=== PATIENT | male | born 2000 | race Caucasian/White ===

== ENCOUNTER 2018-08-22 10:08 | Inpatient (IN) | payer OTHER ==
[2018-08-22 11:14] LABS: PLATELET COUNT 302 10^3/uL (150-400)
--- NOTE | 2018-08-22 11:37 | EDPHY ---
General - History Smoking Status: Never smoked Time Seen by Provider: 08/22/18 11:28 Narrative: CHIEF COMPLAINT: I am having a rational thought HISTORY OF PRESENT ILLNESS: Patient presents with complaints of I and having irrational thoughts. He states that the symptoms have been present since this morning. This started suddenly. They have been constant. He denies suicidal ideation. He does report feeling homicidal, currently toward me. He also states that he has had ""irrational thoughts," which are delusional thoughts. He has had a history of psychotic break in the past. He reports previous psychiatric care but not this time. Does not nose diagnoses. No other associated complaints or modifying factors PSYCHIATRIC DIAGNOSES: Psychotic break PRIOR PSYCHIATRIC EVALUATIONS: [place] earlier this year M1/DETAINER: Dr. Marie, at 11:37 a.m. REVIEW OF SYSTEMS: Ten systems reviewed and are negative unless otherwise noted in the HPI EXAMINATION General Appearance: Alert, no distress. Conversing in full sentences. Head: normocephalic, atraumatic Eyes: Pupils equal and round, no conjunctival pallor or injection ENT, Mouth: Mucous membranes moist Neck: Normal inspection, supple, non-tender Respiratory: Lungs are clear to auscultation Cardiovascular: Regular rate and rhythm Gastrointestinal: Abdomen is soft and nontender Back: non-tender, no bony abnormalities Neurological: GCS 15. A&O, nonfocal, normal gait. Strength is symmetric in all 4 limbs Skin: Warm and dry, no rash Extremities: Nontender, no pedal edema Psychiatric: Flat affect. Describes homicidal thoughts towards me and others. Denies SI. DIFFERENTIAL DIAGNOSES: Including but not limited to acute psychosis, schizophrenia, schizoaffective disorder, bipolar, may MDM: 11:25 a.m. Suspected acute psychosis with rational thought homicidal. Patient denies suicidal ideation. There is no altered mentation. Vital signs are within normal limits. Laboratory studies urinalysis are pending for medical clearance at this time. He has been placed on an M1 at this time. 11:45 a.m. Patient has been cleared for evaluation at this time. 2:00 p.m. Patient has been evaluated and pending recommendation. 2:30 p.m. Patient has been accepted for inpatient care at [address] [place] [address]. Accepting physician is Dr. Jordan. He will be transferred by EMS. SUPERVISION: Patient was independently examined, but I discussed the case with my secondary supervising physician Dr. Marie ([facility]) Medical Decision Makin:50 p.m. the patient has been evaluated and will be admitted to [address] [place] [address] Cee. (Jaspal Marie) - Objective Vital Signs: Initial Vital Signs Temperature (C) 36.5 C 08/22/18 10:11 Heart Rate 90 08/22/18 10:11 Respiratory Rate 16 08/22/18 10:11 Blood Pressure 162/100 H 08/22/18 10:11 O2 Sat (%) 98 08/22/18 10:11 O2 Delivery Mode Room Air Allergies/Adverse Reactions: ENVIRONMENTAL Allergy (Uncoded 08/22/18 11:01) PISTACHIO Allergy (Uncoded 08/22/18 11:01) SUNFLOWER SEEDS Allergy (Uncoded 08/22/18 11:01) Home Medications: Medication Instructions Recorded Acetaminophen [Tylenol 325mg (*)] 650 mg PO Q4HRS PRN tab 08/28/18 Risperidone 2 mg PO DAILY 30 Days #30 tablet 08/28/18 clonazePAM [klonoPIN (*)] 1 mg PO HS 30 Days #30 tab 08/28/18 Laboratory Results: Laboratory Results 08/22/18 10:50 08/22/18 10:50 Medications Given: Discontinued Medications Acetaminophen (Tylenol) 650 mg PO Q4HRS PRN PRN Reason: Pain, Mild Stop: 02/18/19 17:25 Last Admin: 08/27/18 18:58 Dose: 650 mg Clonazepam (Klonopin) 1 mg PO HS ISABELLE Stop: 02/20/19 20:59 Last Admin: 08/27/18 19:01 Dose: 1 mg Clonazepam (Klonopin) 0.5 mg PO DAILY ISABELLE Stop: 02/20/19 08:59 Last Admin: 08/26/18 08:47 Dose: 0.5 mg Clonazepam (Klonopin) 0.5 mg PO DAILY14 ISABELLE Stop: 02/21/19 13:59 Last Admin: 08/26/18 15:42 Dose: Not Given Hydroxyzine HCl (Hydroxyzine Hcl) 25 mg PO Q6HRS PRN PRN Reason: Anxiety Stop: 02/22/19 14:49 Last Admin: 08/27/18 20:47 Dose: 25 mg Lorazepam (Ativan) 0.5 - 1 mg PO Q6HRS PRN PRN Reason: Anxiety, Able to Take PO Stop: 02/18/19 17:25 Last Admin: 08/23/18 14:04 Dose: 1 mg Lorazepam (Ativan) 1 mg PO HS ISABELLE Stop: 02/19/19 20:59 Last Admin: 08/23/18 19:07 Dose: 1 mg Lorazepam (Ativan) 1 mg PO Q4HRS PRN PRN Reason: Agitation, Psychosis Stop: 02/18/19 17:25 Last Admin: 08/24/18 17:29 Dose: 1 mg Risperidone (Risperdal-M) 2 mg SL HS ISABELLE Stop: 02/18/19 20:59 Last Admin: 08/27/18 19:01 Dose: 2 mg Risperidone (Risperdal-M) 1 mg SL Q4 PRN PRN Reason: Agitation, Psychosis Stop: 02/18/19 17:59 Last Admin: 08/23/18 14:04 Dose: 1 mg Risperidone (Risperdal-M) 1 mg SL DAILY ISABELLE Stop: 02/20/19 08:59 Last Admin: 08/26/18 08:47 Dose: 1 mg Risperidone (Risperdal-M) 0.25 mg SL Q4H PRN PRN Reason: Agitation, Psychosis Stop: 02/18/19 17:32 Last Admin: 08/28/18 05:04 Dose: 0.25 mg Departure - Departure Disposition: [facility] IP Clinical Impression: Acute psychosis Schizophrenia Qualifiers: Schizophrenia type: unspecified Qualified Code(s): F20.9 - Schizophrenia, unspecified Condition: Good
--- NOTE | 2018-08-22 14:51 | ASMTTCLDSP ---
TLC Discharge Disposition Disposition: Answers: Admit Disposition Notes: Notes: Admit 3N. Discharge Concerns/Recommendations: Notes: In consultation with [facility] ED physician, Jaspal Marie MD and on-call psychiatrist, Jace Cee MD, both concurred that pt appears to meet 27-65 criteria requiring psychiatric hospitalization as pt appears to be gravely disabled due to a mental illness condition. Pt was given but unable to sign the 3N prohibited belongings list while in the ED. Was patient given the Answers: Yes Inpatient Behavioral Health Prohibited Belongings List while in the ED? For inpatient Jace Cee MD admission, the following psychiatrist agreed to accept patient for admission to Behavioral Health ([facility]): Type of Hold: Answers: Involuntary Transportation Hold Hold initiated by: Answers: ED Physician Date Signed: 08/22/2018 02:51 PM Electronically Signed By:Alin Peck
--- NOTE | 2018-08-22 14:51 | ASMTTLCEVL ---
TLC Evaluation - Basic Information Evaluation Start Date and 08/22/2018 12:30 PM Time Hospital Status Answers: M1 Hold 72-hr M1 Hold Start Date 08/22/2018 11:37 AM and Time Patient statement Notes: you guys are triggering my anxiety. Narrative Notes: Pt is a 18 yo, single, unemployed, male with history of previous psychotic break, brought to [facility] ED initially by his parents, Georgie and Uday [phone] due to increasing concerns about pts anxiety, lack of sleep and having worsening psychotic break-like symptoms for the past 4 days. Pt was placed on M1 hold by ED provider which noted: patient admits to homicidal thoughts, irrational thoughts that consist of delusions of grandeur. He appears to be in acute psychosis. Pt was unable to complete BDI/BSS questionnaires and did not appear to be a reliable historian due to current mental state/anxiety. History was obtained from parents who reported that pt started pulling away from his peers while in high school and focused on digital artwork. On June 11, 2018 while family and pt were in [place], parents reported that pt had a psychotic break which was precipitated by lack of sleep and social pressures. Parents reported that they took pt to an emergency room and was evaluated but released. Parents currently reported sudden onset of irrational, constant thoughts, especially this morning. Parents reported that pt has thoughts that he is an imoji, that he is overwhelmed by his anxiety. Parents reported no previous history of self-harm, cutting behaviors or suicide attempts. Parents reported that when family was in [place], pt had some minor symptoms. Pt had a difficult time in college last year and has social phobias and difficulties with social/peer interactions. Diagnosis History Notes: Unspecified Schizophrenia Spectrum and Other Psychotic Disorder. Parents reported that provider had diagnosed pt with Adjustment Disorder. Prior suicide attempts Notes: No prior history of suicide attempts. Prior hospitalizations Notes: No prior history of psychiatric hospitalizations. Treatment Responses Notes: N/A. History of violence Notes: No reported past history of aggression/violence. Therapist: Pt also began working with two therapists in June Vidal Gilliland, PhD in [place] and DBT therapist named Lakeshia Carter. Psychiatrist: Pt began working with psychiatrist, Nohemy Langston MD since June 2018. Medications (name, dosage, route, freq uency) Notes: Pt is prescribed Risperdal 0.25 mg, take .5 mg in am, .5 mg in mid-day, and .5 mg po at bedtime. Allergies/Reaction Notes: Environmental allergies only. Sleep Notes: Little to no sleep over past 3-4 days. Appetite Notes: Decreased appetite. Medical/Surgical history Notes: Significant for being born 10 weeks early along with fraternal twin brother. Pt born with Cerebral Palsy. Pt had tendon lengthening surgeries to left leg at age 3 and age 8, then growth restraint surgery on right leg at age 13. Pt had history of childhood asthma. Substance use history (frequency, intensity, his tory, duration) Notes: Pt has no history of alcohol, marijuana or any other illicit substance use. BAL zero. UDS results negative for all tested substances. Family composition Notes: Parents are . Pt has a fraternal twin brother named Jamel and a 16 yo sister. Need for family Answers: Yes participation in patient's care Family psychiatric/substance abuse history Notes: Mother reported she has history of depression; maternal side of family with history of depression and anxiety; paternal grandmother is recovering alcoholic since 1983; maternal grandmother committed suicide by carbon monoxide poisoning/asphyxiation. Developmental history Notes: Pt born 10 weeks early at [facility] and grew up in [place]. He was diagnosed with Cerebral Palsy a week after he was born. Pt had to be admitted to [facility] shortly after his . Parents denied pt having any childhood history of TBIs, LOC or concussions. Parents denied any childhood history of physical, emotional or sexual abuse/trauma. Abuse concerns Answers: None Marital status/children Notes: Pt is single, never , no dependents, not in dating relationship. Living situation Notes: Pt resides with his parents and 16 yo sister in a house in [place]. Sexual history/orientation Notes: Not active. Heterosexual. Peer support/family strengths Notes: Parents, brother identified as pts primary supports. Education level/history Notes: Pt attended one year of college at [employer] in [place] last year. Pt is currently auditing some classes at on Tuesdays and . Work history Notes: Pt is not employed. 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 Notes: None. Legal Notes: Pt has no arrest/legal history. Sikh/Spiritual Notes: None identified which would impact treatment. Leisure Notes: Pt enjoys working out, hiking, biking, playing ping pong, playing golf with his father, skiing in the winter, watching sports. Collateral Notes: Parents, Georgie and Uday as noted above. Patient's strengths Answers: Athletic (Please select at least TWO strengths): Intelligent Supportive Family Willingness TLC Evaluation - Mental Status Exam Appearance: Answers: Appropriate Clean Unkempt Disheveled Eye Contact: Answers: Intermittent Staring Mood: Answers: Sad Affect: Answers: Anxious Apprehensive Blunted Constricted Fearful Flat Guarded Nervous Sad Subdued Tearful Behavior: Answers: Crying Fearful Guarded Passive Speech: Answers: Irrelevant Illogical Coherent Circumstantial Delayed Grandiose Loose Associations Slowed Thought Process: Answers: Disorganized Disoriented Circumstantial Loose Associations Insight: Answers: Poor Judgement: Answers: Poor Depression Answers: Difficulty Concentrating Signs/Symptoms: Flat Affect Psychomotor Retardation Sad Mood Withdrawn Anxiety Signs/Symptoms Answers: Generalized Anxiety Hallucinations: Answers: None Delusions: Answers: Grandiose Ideas of Reference Current Stage of Change Answers: Precontemplation Pt reported to have Answers: No suicidal/self-injuring ideation/behavior? Pt reported to be making Answers: No suicidal/self-injuring threats? Pt reported to have Answers: No aggression/assault ideation/behavior? Pt reported to be making Answers: No aggression/assault threats? Pt exhibits inability to Answers: Yes care for self/grave disability? Ideation/behavior is Answers: Yes chronic? Patient has a specific Answers: No plan? Pt has access to means to Answers: No execute the plan? Ideation involves Answers: No serious/lethal intent? Ideation has Answers: Yes delusional/hallucinatory content? History of Answers: No suicidal/self-injuring ideation, behavior, or threats? History of Answers: No aggressive/assaultive ideation, behavior, or threats? History of serious Answers: No physical harm to self/others while in treatment setting? TLC Evaluation - Suicide/Homicide Risk Suicide Risk Factors: Answers: Flat Affect Hx of Suicide Attempt by Family Member Inadequate Social Support Lack of Sikh Support Lack of Social Support Lack/Loss of Employment Psychotic Disorder Schizophrenia Single Homicide/violence risk Answers: None factors: Current Suicidal Answers: No Ideation? Current Suicidal Ideation Answers: No in the Past 48 Hours? Current Suicidal Ideation Answers: No in the Past Month? Current Suicidal Answers: No Ideation, Worst Ever? Suicide Internal Answers: Other Notes: No past/recent/current Protective Factors: suicidal ideation Suicide External Answers: Positive Therapeutic Protective Factors: Relationships Ranking of patient's Answers: Low suicidal risk: Ranking of patient's Answers: Low homicidal risk: TLC Evaluation - Wrap-up AXIS I Diagnosis (include DSM-V and ICD-10 codes), must also be entered in [employer], which is the source of truth. Notes: Unspecified Schizophrenia Spectrum and Other Psychotic Disorder 298.9 (F29) In consultation with [facility] ED physician, Jaspal Marie MD and on-call psychiatrist, Jace Cee MD, both concurred that pt appears to meet 27-65 criteria requiring psychiatric hospitalization as pt appears to be gravely disabled due to a mental illness condition. Pt was given but unable to sign the 3N prohibited belongings list while in the ED. Evaluation End Date and 08/22/2018 02:30 PM Time (HH:MM): Date Signed: 08/22/2018 02:50 PM Electronically Signed By:Alin Peck
--- NOTE | 2018-08-22 15:46 | PDCONSULT ---
<Eugenie Hsu - Last Filed: 08/22/18 15:40> Quick Technician Note: The patient was brought in to the ED by his parents. He reports having "rage" against me and others. He isn't sure why but does. He denies SOB, chest pains , dizziness, N/V. He refused to answer majority of my questions and refused to be examined. He appeared to have a flat affect, flushed face and occupied with his thoughts. Respirations 22, not labored. <Laney Goldstein - Last Filed: 08/22/18 21:25> Quick Technician Note: I saw and evaluated patient with Eugenie Hsu NP please see my dictated H&P
[2018-08-22] MEDS ORDERED: MAGNESIUM HYDROXIDE 30 ML UDCUP PO PRN (17:26)
[2018-08-22] MEDS ORDERED: MAG HYDROX/AL HYDROX/SIMETH 30 ML UDCUP PO PRN (17:26)
[2018-08-22] MEDS ORDERED: NICOTINE POLACRILEX 2 MG GUM B PRN (17:26)
[2018-08-22] MEDS: LORazepam 0.5 MG TAB PO PRN (18:37)
[2018-08-22] MEDS: RISPERIDONE 1 MG ODT TAB SL PRN (18:39)
[2018-08-22] MEDS: RISPERIDONE 2 MG ODT TAB SL SCH (21:15)
[2018-08-23] MEDS: RISPERIDONE 1 MG ODT TAB SL PRN ×2 (04:21→14:04)
[2018-08-23] MEDS: LORazepam 0.5 MG TAB PO PRN ×3 (04:21→21:20)
[2018-08-23] MEDS: ACETAMINOPHEN 325 MG TAB PO PRN ×2 (06:15→14:04)
--- NOTE | 2018-08-23 06:59 | GCON ---
DATE OF CONSULTATION: 08/22/2018 REFERRING PHYSICIAN: Александр Palafox MD CHIEF COMPLAINT: Psychosis. HISTORY OF PRESENT ILLNESS: A 18-year-old male with a history of a previous psychotic break, cerebra l palsy, presenting to the ER with irrational thoughts starting this morning. He denies suicidal elisabet ation. He states he felt like he was "a gun" and could shoot something. Says he was seeing unusual commercials talking to him. Reports increased stressors after spending some time at college in [place] last year and is still marlon ling with the aftermath of that time. He would not go into further detail. REVIEW OF SYSTEMS: I completed a 10-point review of systems, negative except as noted in HPI. PAST MEDICAL HISTORY: Right spastic hemiplegic cerebral palsy, history of a psychotic break. PAST SURGICAL HISTORY: Tendon lengthening. SOCIAL HISTORY: Lives in [place] with his parents and was previously a student at college in [place] . Denies alcohol, tobacco, or illicits. FAMILY HISTORY: Noncontributory. HOME MEDICATIONS: Risperdal. ALLERGIES: Pistachios, sunflower seeds. PHYSICAL EXAMINATION: VITAL SIGNS: Temperature 36.9. Blood pressure 162/100, repeat was 179/60. G ENERAL: He is lying in bed, in no acute distress. HEENT: PERRLA. Moist mucous membranes. CV: Re gular rate and rhythm. LUNGS: Clear. ABDOMEN: Soft, nontender, nondistended. Positive bowel soun ds. : No Xavier. MUSCULOSKELETAL: 5/5 upper and lower extremity strength. NEURO: 2 through 12 intact. PSYCH: Alert and oriented, flat affect, staring off, would take a very long time to answer questions. LABS: WBC 10, hemoglobin 18, hematocrit 52. Sodium 142, potassium 4.2, chloride 104, carbon dioxide 26, BUN 15, creatinine 0.9, glucose 101, calcium is 10, cholesterol normal. Urine tox negative. As pirin and salicylate are negative. Alcohol negative. ASSESSMENT AND PLAN: 1. Psychosis: Previously with a psychotic break and treated with Risperdal. Per patient, says he h as discontinued this. He denies suicidal ideations, but did endorse some homicidal thoughts. He was to be transferred to Behavioral Health for further management. 2. History of cerebral palsy: He has had previous tendon lengthening and was undergoing PT and OT. 3. Hypertension: Secondary to agitation at time of admission. This has since resolved. 4. Diet: Regular. 5. Deep venous thrombosis prophylaxis: Low risk, ambulatory. Thank you for this consult. If you have any questions, please call. /[id number]/MODL
--- NOTE | 2018-08-23 09:13 | ASMTBHMTP ---
Master Treatment Plan Master Treatment Plan Answers: Impaired Reality for: Date: 08/22/2018 Diagnosis on Admission: Unspecified Schizophrenia Spectrum and Other Psychotic Disorder 298.9 (F29) Expected length of stay: 3-5 days Reason for admission: Notes: Pt is a 18 yo, single, unemployed, male with history of previous psychotic break, brought to [facility] ED initially by his parents, Georgie and Uday [phone] due to increasing concerns about pts anxiety, lack of sleep and having worsening psychotic break-like symptoms for the past 4 days. Pt was placed on M1 hold by ED provider which noted: patient admits to homicidal thoughts, irrational thoughts that consist of delusions of grandeur. He appears to be in acute psychosis. Pt was unable to complete BDI/BSS questionnaires and did not appear to be a reliable historian due to current mental state/anxiety. History was obtained from parents who reported that pt started pulling away from his peers while in high school and focused on digital artwork. On June 11, 2018 while family and pt were in [place], parents reported that pt had a psychotic break which was precipitated by lack of sleep and social pressures. Parents reported that they took pt to an emergency room and was evaluated but released. Parents currently reported sudden onset of irrational, constant thoughts, especially this morning. Parents reported that pt has thoughts that he is an imoji, that he is overwhelmed by his anxiety. Parents reported no previous history of self-harm, cutting behaviors or suicide attempts. Parents reported that when family was in [place], pt had some minor symptoms. Pt had a difficult time in college last year and has social phobias and difficulties with social/peer interactions. Patient's stated presenting problems: Notes: "because I am sick...." Patient's goals for treatment: Notes: "to get better..." Patient's strengths: Notes: "some?" Identify supports outside of hospital: Notes: family in [place], [place] Discharge criteria: Notes: Psychotic symptoms will be reduced or eliminated with return to baseline functioning in affect, thinking and behavior prior to discharge. Initial disposition plan/considerations: Notes: Homeless/[place]* Master Treatment Plan Required Signatures Psychiatrist signature: Answers: Psychiatrist: RN on-shift signature: Answers: RN: Patient signature: Answers: Patient: Date Signed: 08/23/2018 08:41 AM Electronically Signed By:Gilberto Davis
[2018-08-23] MEDS ORDERED: LORazepam 0.5 MG TAB PO PRN (14:24)
--- NOTE | 2018-08-23 14:51 | BAPA ---
DATE OF SERVICE: 08/23/2018 CHIEF COMPLAINT: "I do not want to meet with you, "f---you." The patient refuses to meet with this COP EXAMINER for initial psychiatric evaluation. HISTORY OF PRESENT ILLNESS: From the ED note dated 08/22/2018, the patient presented to the emergency department having irrational thoughts. The patient reports symptoms have been present since this morning and started suddenly, and they have been constant. Patient denies suicidal ideation. The patient reported he did feel homicidal currently toward the physician in the ER. The patient again reports he has had "irrational thoughts" which are delusional thoughts. The patient has a history of a psychotic break in the past. From the [facility] evaluation dated 08/22/2018, the patient was placed on an M1 hold with M1 hold start date of 08/22/2018, at 11:37 a.m. The patient reported to the [facility] spool worker "you guys are triggering my anxiety." The patient is a 18-year- old, single, unemployed, male with a history of previous psychotic break, brought to the [facility] ED initially by his parents. The parents have increased concern about patient's anxiety, lack of sleep, having worsening psychotic break-like symptoms for the past 4 days. The patient was placed on an M1 hold by the ED provider due to patient admitting to having homicidal thoughts, irrational thoughts that are consistent with delusions of grandeur. The patient appears to be in acute psychosis. Most of the [facility] evaluation questions are answered by patient's parents. The patient's parents reported on June 11, 2018 while visiting [facility] in [place], the patient had a psychotic break, which was precipitated by lack of sleep and social pressures. The parents report they took the patient to the emergency room and he was evaluated, but released. Parents report patient currently has had sudden onset of irrational, constant thoughts, especially this morning prior to presenting to the ER. The patient's parents report the patient has had thoughts that he is an emoji and that he is overwhelmed by his anxiety. The patient had a difficult time in college last year, has social phobias and difficulties with social peer interactions. The further history of present illness will be gathered throughout the patient's stay, when patient is more agreeable to meeting for interview. PAST PSYCHIATRIC HISTORY: From the [facility] evaluation, the patient has a past diagnosis history of unspecified schizophrenia spectrum or other psychiatric disorder. The patient's parents reported that a provider had diagnosed the patient with adjustment disorder. The patient has no prior history of suicide attempts. No prior history of psychiatric hospitalizations. There are no reports of past history of aggression or violence. The patient has had little to no sleep over the past 3-4 days, decreased appetite. ALLERGIES: Aiken seeds, pistachio and environmental allergies per record. CURRENT MEDICATIONS: Risperidone at 2 mg sublingual at bedtime, risperidone 1 mg sublingual q.4 p.r.n., Ativan 1 mg p.o. at bedtime, Ativan 0.5-1 mg p.o. q.6 hours p.r.n. 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 The patient was born with cerebral palsy. The patient had tendon lengthened surgeries to leg at age 3 and age 8, then growth restraint surgery on right leg at age 13. The patient had history of childhood asthma. SOCIAL HISTORY: From the [facility] evaluation, the patient's parents are . The patient has a fraternal twin brother named Jamel, and a 16-year-old sister. The patient was born 10 weeks early at the [facility] and grew up in [place]. The patient has a diagnosis of cerebral palsy after 1 week after . [facility] his . Parents denied patient having any childhood history of TBI, loss of consciousness, or concussions. Parents denied any childhood history of physical, emotional, or sexual abuse or trauma. The patient is single, never . No dependants. Not in a dating relationship. The patient resides with his parents and 16-year-old sister in a house in [place]. The patient describes sexual orientation as heterosexual. Currently not sexually active. Parents and patient's brother are identified as patient's primary supports. The patient attended 1 year of college at [email or web address] in [place] last year. The patient is currently auditing some classes at on Tuesdays and . The patient is not employed. 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 Patient has no history of duty. The patient has no history of arrests or legal history. There are no christian or spiritual identifiers or indications that would impact the patient's treatment. The patient enjoys working out, hiking, biking, playing ping-pong, playing golf with his father, skiing in the winter, and watching sports. SUBSTANCE USE HISTORY: From the [facility] evaluation, the patient has no history of alcohol, marijuana, or any other illicit substance use. Blood alcohol on admission was 0. UDS results were negative for all tested substances. FAMILY PSYCHIATRIC HISTORY: From the [facility] evaluation, the patient's mother reported she has a history of depression. Maternal side of family history of depression with anxiety. Maternal grandmother is a recovering alcoholic since 1983. Maternal grandmother committed suicide by carbon monoxide poisoning and asphyxiation. ADMISSION LABS AND STUDIES: CBC from 08/22/2018, within normal limits except white blood cells were elevated at 10.13, hemoglobin was elevated at 18.1, hematocrit was elevated at 52.6, absolute neutrophils were elevated at 7.13. BMP from 08/22/2018, within normal limits except glucose was elevated at 101. Hemoglobin A1c was 5.5. Liver function from 08/22/2018 within normal limits except total protein was elevated at 8.6, and albumin was elevated at 5.1. Fasting lipid panel from 08/22/2018, within normal limits except LDL cholesterol calculated was elevated at 106. Toxicology screen from 08/22/2018 was negative for all substances of abuse and negative for ethyl alcohol. MENTAL STATUS EXAM: The patient is a well-nourished male looking stated chronological age. Attire is appropriate. Dress is hospital garb. Grooming status is appropriate. Ambulation is independent. Gait is fairly normal. The patient does walk with a limp due to cerebral palsy. The patient's posture is normal and relaxed. Eye contact is inappropriate and avoided. Motor activity is appropriate with purposeful, organized, coordinated movements. The patient does walk with a limp due to history of cerebral palsy. There are no involuntary movements noted. The patient's attitude is uncooperative, defensive and irritable. The patient appears disinterested and does not relate well to this interviewer. Language production is un spontaneous, rate is hesitant. Latency of response is prolonged with irritable tone, low volume, and amount is monosyllabic. Articulation is clear. Unable to appropriately assess patient's mood at this time, as patient does not respond to question regarding his mood. Patient's thought process is nonlinear and illogical with loose associations, thought blocking, and disorganized thought process. The patient does not report suicidal/homicidal thoughts, ideas, or plans. The patient denies auditory visual hallucinations, patient denies delusions. The patient does not appear to be attending to internal stimuli. The patient is oriented to person. The patient's attention and concentration are poor. The patient's insight and judgment are poor. Unable to appropriately assess cognitive function at this time. The patient does not report undesirable side effects from current medications. DIAGNOSIS: Based on the patient's history and current presentation, his diagnosis is unspecified schizophrenia or other psychotic disorder. FORMULATION: The patient is a 18-year-old male, single, unemployed, living in [place], who presents to the hospital involuntarily due to being a danger to others and gravely disabled. The patient requires continued inpatient care because of current psychosis. The patient presents with problems of psychosis that have been steadily increasing over the past several days. Patient's life has been affected by these problems, including the crisis that led to this hospitalization. The onset and exacerbation of symptoms at this time are unknown. The patient has a past psychiatric history of unspecified psychosis. The patient is at a high safety risk due to current psychosis. Protective factors while hospitalized include ongoing safety checks, active involvement in treatment, and support from our treatment team. The patient could benefit from inpatient hospitalization for safety, crisis stabilization and medication evaluation. PLAN: (1) Psychotropic medications: After reviewing options, risks and benefits, the patient's current medications will be continued. This COP EXAMINER met with patient's parents today when parents visited patient during visiting hours. Parents report that the patient has responded well to Risperdal and Ativan in the past, and report that once the patient is able to get some rest, he improves quickly. Parents report patient has responded well to Ativan in the past for sleep. No other medication changes at this time as more time is needed to determine ongoing tolerability and efficacy. Plan is to continue to observe patient for response and side effects from medications, and ongoing monitoring and evaluation. (2) Review with patient informed consent and recommendations for psychotropic medication treatment listed below (3) Labs: no additional labs at this time (4) Therapy: continue milieu and group therapy (5) Further investigation including gathering information from patients relatives and review of past case records to inform treatment plan. (6) Safety/Wellness plan and follow-up outpatient appointments to be established prior to discharge. Next steps are for patient to meet with home care assistant to plan a safe discharge plan and establish outpatient services for ongoing treatment. (7) Confer with inpatient treatment team regarding treatment plan. (8) Legal status: M1 hold (9) Consider discharge next week if patient is in stable condition, safe, and has a safe discharge plan. (10) Substance abuse interventions: none at this time ESTIMATED LENGTH OF STAY: 7-10 days PSYCHOTROPIC MEDICATION TREATMENT INFORMED CONSENT and RECOMMENDATIONS: Review nature of condition, diagnosis, and prognosis. Review nature and purpose of psychotropic medication treatment. Review type of psychotropic medications being ordered. Review risk and benefits of psychotropic medication treatment. Review probable length of time will need to take medications. Review risk and benefits of not undergoing psychotropic medication treatment. Review alternative treatments to psychotropic medications. Review psychotropic medications contraindications, drug-drug interactions, side effects, and importance of reporting any side effects to a psychiatric provider or nurse during inpatient hospitalization, and upon discharge to patients psychiatric outpatient provider, primary care provider, or other health rehab care assistant. Review importance of asking a nurse, psychiatric provider, or primary care provider any questions or problems concerning the psychotropic medications. Verifty patient understands the information that has been provided, and understands, accepts, and agrees to psychotropic medications. Review patients safety plan and importance of patient to communicate to staff while hospitalized if patient is ever a danger to self/others, or unable to care for self, and upon discharge, the importance for patient to contact [facility] or [facility], or go to the nearest emergency room, if patient is ever a danger to self/others, or unable to care for self. Recommend that upon discharge patient establish medication management treatment with a psychiatric provider, establishes routine therapy appointments, and follow-up with primary care provider. Verify patient understands and agrees to these recommendations. /[id number]/MODL MTDD
[2018-08-23] MEDS: RISPERIDONE 2 MG ODT TAB SL SCH (19:07)
[2018-08-23] MEDS ORDERED: LORazepam 1 MG TAB PO SCH (21:00)
--- NOTE | 2018-08-23 22:46 | PDMN ---
Medical Necessity Medical necessity: Pt meets inpt criteria per MD order and [facility],Other Psychotic Disorders, Adult: Inpatient Care. Pt presented to ER, appearing to be in acute psychosis, on M1 Hold due to being danger to others and gravely disabled, admitted w/diagnosis of unspecified schizophrenia or other psychotic disorder requiring inpt psychiatric hospitalization for current psychosis.
[2018-08-24] MEDS: clonazePAM 0.5 MG TAB PO SCH (09:03)
[2018-08-24] MEDS: RISPERIDONE 1 MG ODT TAB SL SCH (09:03)
--- NOTE | 2018-08-24 12:12 | ASMTCMCOM ---
CM Note CM Note Notes: The patient participated in the clinical treatment team rounds. He reported that he was "overworked" which induced his SI and caused him to have a "psychotic break;" he reported also realizing that his family causes him additional anxiety. The patient stated, "I hope to get back on my feet. I'm not doing so well...For the past three years... I'm in a bad space...All of my life I've been dealing with depression and consequently anxiety." The patient was tearful as he spoke; he occasionally paused to exhale. The patient suggested he may benefit from antidepressants. The patient's family has attempted to provide the patient with clothing and sensory objects for self soothing from home and the patient has declined to receive his belongings. The patient continues to wear a hospital gown w/o scrub pants and requires redirection from staff to put additional clothing on. The patient reported that he does not wear the scrub pants due to repeated incontinence; he stated that he "just gets super nervous and has to sit down on the toilet." The clinical team recommended he drink only a reasonable amount of water and attempt to relieve himself quarter after every hour. Date Signed: 08/24/2018 12:09 PM Electronically Signed By:Vicenta Rees
--- NOTE | 2018-08-24 12:50 | SOAPPROG ---
SOAP Progress Note Assessment/Plan: Assessment: Unspecified psychosis, current acute psychosis. Slight improvement noted, notable sleep. (see subjective/objective note). Patient is not safe to discharge at this time as patient continues to exhibit signs of psychosis, and express psychotic symptoms. Patient requires continued inpatient care because of current psychosis, and requires inpatient level of care to stabilize in order to no longer be gravely disabled due to mental illness. Patient could benefit from continued inpatient hospitalization for crisis stabilization, safety, and medication evaluation. Plan: (1) Psychotropic medications: After reviewing options, risks, and benefits patient agrees to continue current medications, discontinue Ativan 1 mg po QHS, begin trial of Klonopin 0.5 mg po QD and 1 mg po QHS, and increase Risperidal to 1 mg po QD and 2 mg po QHS. No other medication changes at this time as more time is needed to determine ongoing tolerability and efficacy. Plan is to continue to observe patient for response and side effects from medications, and ongoing monitoring and evaluation. (2) Review with patient informed consent and recommendations for psychotropic medication treatment listed below (3) Labs: no additional labs at this time (4) Therapy: continue milieu and group therapy (5) Further investigation including gathering information from patients relatives and review of past case records to inform treatment plan. (6) Safety/Wellness plan and follow-up outpatient appointments to be established prior to discharge. Next steps are for patient to meet with manager primary care to plan a safe discharge plan and establish outpatient services for ongoing treatment. (7) Confer with inpatient treatment team regarding treatment plan. (8) Legal status: M1 hold, to sign in voluntary when M1 hold expires (9) Consider discharge next week if patient is in stable condition, safe, and has a safe discharge plan. PSYCHOTROPIC MEDICATION TREATMENT INFORMED CONSENT and RECOMMENDATIONS: Review nature of condition, diagnosis, and prognosis. Review nature and purpose of psychotropic medication treatment. Review type of psychotropic medications being ordered. Review risk and benefits of psychotropic medication treatment. Review probable length of time patient will need to take medications. Review risk and benefits of not undergoing psychotropic medication treatment. Review alternative treatments to psychotropic medications. Review psychotropic medications contraindications, drug-drug interactions, side effects, and importance of reporting any side effects to a psychiatric provider or nurse during inpatient hospitalization, and upon discharge to patients psychiatric outpatient provider, primary care provider, or other health health care sanitary technician. Review importance of asking a nurse, psychiatric provider, or primary care provider any questions or problems concerning the psychotropic medications. Verify patient understands the information that has been provided, and understands, accepts, and agrees to psychotropic medications. Review patients safety plan and importance of patient to report to staff while hospitalized if patient is ever a danger to self/others, or unable to care for self, and upon discharge, the importance for patient to contact [facility] or [facility], or go to the nearest emergency room, if patient is ever a danger to self/others, or unable to care for self. Recommend that upon discharge patient establish medication management treatment with a psychiatric provider, establishes routine therapy appointments, and follow-up with primary care provider. Verify patient understands and agrees to these recommendations. 08/24/18 12:51 Subjective: Following up with patient for evaluation of psychosis and safety. Patient reports, "I am doing better, feel less anxious, and got some good sleep." Patient expresses the following psychiatric symptoms anxiety. Patient reports taking medications as prescribed, and describes response to medications as good. Patient does not report undesirable side effects from the medications, and agrees to continue current medications. Patient reports appetite as good, and reports eating all meals. Patient describes getting 10 hours of sleep, and feeling rested. Objective: Vital Signs Temp Pulse Resp BP Pulse Ox 36.5 C 105 H 14 151/61 H 96 08/24/18 06:00 08/24/18 06:00 08/24/18 06:00 08/24/18 06:00 08/24/18 06:00 NURSING REPORT: Consulted with nursing for update on patients progress in treatment. Nurses report patient is not engaged in treatment, is not attending groups, slept 10 hours, expresses the following psychiatric symptoms: severe anxiety, exhibits the following psychiatric symptoms: withdrawn, thought blocking, disorganized; refuses to wear more than a hospital gown; refuses to wear underwear or hospital pants; is eating all meals with direction from staff ; requires direction from staff to preform ADLs, is agreeable to medications and taking as prescribed with no report of side effects, with no s/s of EPS/ akathisia, and denies SI/HI, denies A/V hallucinations, and denies delusions. RN CLINICAL REVIEW UPDATE: currently working to set-up OP appointments for therapy and medication management. TREATMENT TEAM MEETING: Patient met with treatment team to review treatment plan for 10 minutes. MSE: The patient is a well-nourished male looking stated chronological age. Attire is appropriate and dress is casual and is neat. Grooming status is appropriate and neat. Ambulation is independent. Gait is normal and coordinated. Posture is normal and relaxed. Eye contact is appropriate, and adequate. Motor activity is appropriate with purposeful, organized, coordinated movements; with no involuntary movements. Attitude is cooperative and friendly. Patient appears distractible and does not relate well to this interviewer. Language production is unspontaneous. Rate is hesitant. Latency of response is prolonged, sad tone, and low volume, and amount is monosyllabic. Articulation is clear. Patient reports mood as okay with incongruent and flat , incongruent affect. Patients thought process is disorganized, non-linear, illogical, with loose associations, thought blocking. Associations are loose. Patient does not report suicidal/homicidal thoughts, ideas, or plans. Patient denies auditory, visual hallucinations. Patient denies delusions. Patient does not appear to be attending to internal stimuli. Patients attention and concentration are poor. Patient is oriented to person, place. Patients insight is poor. Patients judgment is poor. No evidence of gross cognitive dysfunction at any point during the interview. No evidence of apparent dysfunction in recent or remote memory. - Time Spent With Patient Time Spent With Patient: 25 minutes, met with patient individually and with treatment team. - Pending Discharge Pending Discharge Within 24 Hours: No Pending Discharge Within 48 Hours: No ICD10 Worksheet Patient Problems: Problems Problem Status Onset Acute psychosis Acute Schizophrenia Acute Unspecified psychosis Acute
[2018-08-24] MEDS: LORazepam 0.5 MG TAB PO PRN (17:29)
[2018-08-24] MEDS: clonazePAM 1 MG TAB PO SCH (19:15)
[2018-08-24] MEDS: RISPERIDONE 2 MG ODT TAB SL SCH (19:15)
--- NOTE | 2018-08-25 07:20 | SOAPPROG ---
SOAP Progress Note Assessment/Plan: Assessment: Unspecified psychosis, current acute psychosis. Slight improvement noted, notably sleep and patient is more interactive with staff (see subjective/ objective note). Patient is not safe to discharge at this time as patient continues to exhibit signs of psychosis, and express psychotic symptoms. Patient requires continued inpatient care because of current psychosis, and requires inpatient level of care to stabilize in order to no longer be gravely disabled due to mental illness. Patient could benefit from continued inpatient hospitalization for crisis stabilization, safety, and medication evaluation. Plan: (1) Psychotropic medications: After reviewing options, risks, and benefits patient agrees to continue current medications. No medication changes at this time as more time is needed to determine ongoing tolerability and efficacy. Plan is to continue to observe patient for response and side effects from medications, and ongoing monitoring and evaluation. (2) Review with patient informed consent and recommendations for psychotropic medication treatment listed below (3) Labs: no additional labs at this time (4) Therapy: continue milieu and group therapy (5) Further investigation including gathering information from patients relatives and review of past case records to inform treatment plan. (6) Safety/Wellness plan and follow-up outpatient appointments to be established prior to discharge. Next steps are for patient to meet with clinical care manager to plan a safe discharge plan and establish outpatient services for ongoing treatment. (7) Confer with inpatient treatment team regarding treatment plan. (8) Legal status: M1 hold, to sign in voluntary when M1 hold expires (9) Consider discharge next week if patient is in stable condition, safe, and has a safe discharge plan. PSYCHOTROPIC MEDICATION TREATMENT INFORMED CONSENT and RECOMMENDATIONS: Review nature of condition, diagnosis, and prognosis. Review nature and purpose of psychotropic medication treatment. Review type of psychotropic medications being ordered. Review risk and benefits of psychotropic medication treatment. Review probable length of time patient will need to take medications. Review risk and benefits of not undergoing psychotropic medication treatment. Review alternative treatments to psychotropic medications. Review psychotropic medications contraindications, drug-drug interactions, side effects, and importance of reporting any side effects to a psychiatric provider or nurse during inpatient hospitalization, and upon discharge to patients psychiatric outpatient provider, primary care provider, or other health associate director career services. Review importance of asking a nurse, psychiatric provider, or primary care provider any questions or problems concerning the psychotropic medications. Verify patient understands the information that has been provided, and understands, accepts, and agrees to psychotropic medications. Review patients safety plan and importance of patient to report to staff while hospitalized if patient is ever a danger to self/others, or unable to care for self, and upon discharge, the importance for patient to contact [facility] or [facility], or go to the nearest emergency room, if patient is ever a danger to self/others, or unable to care for self. Recommend that upon discharge patient establish medication management treatment with a psychiatric provider, establishes routine therapy appointments, and follow-up with primary care provider. Verify patient understands and agrees to these recommendations. 08/25/18 07:18 Subjective: Following up with patient for evaluation of psychosis and safety. Patient reports, "I slept well last night, feel better, not as nervous around other people now." When this FISHING VESSEL DECKHAND asks patient reason he is hospitalized, patient does not respond. Patient expresses the following psychiatric symptoms severe anxiety. Patient reports taking medications as prescribed, and describes response to medications as good. Patient does not report undesirable side effects from the medications, and agrees to continue current medications. Patient reports appetite as good, and reports eating all meals. Patient describes getting "a lot" of hours of sleep, and feeling rested. Objective: Vital Signs Temp Pulse Resp BP Pulse Ox 36.5 C 87 16 123/64 H 96 08/25/18 06:00 08/25/18 06:00 08/25/18 06:00 08/25/18 06:00 08/25/18 06:00 NURSING REPORT: Consulted with nursing for update on patients progress in treatment. Nurses report patient is not engaged in treatment, is not attending groups, slept 11 hours, expresses the following psychiatric symptoms: severe anxiety, exhibits the following psychiatric symptoms: withdrawn, thought blocking, disorganized; refuses to wear more than a hospital gown; refuses to wear underwear or hospital pants; is eating all meals with direction from staff ; requires direction from staff to preform ADLs, is agreeable to medications and taking as prescribed with no report of side effects, with no s/s of EPS/ akathisia, and denies SI/HI, denies A/V hallucinations, and denies delusions. Nurses report patient is not able to perform his ADLs independently and requires continued redirection from staff. Staff reports patient stated "f--- you" a few times to staff yesterday when requiring redirection. Patient entered nursing station yesterday afternoon and was redirectable with assistance from staff and security. Patient continues exhibit disorganized behavior and thought process. COMMODITY LOAN CLERK UPDATE: currently working to set-up OP appointments for therapy and medication management. TREATMENT TEAM: patient was agreeable to meeting with treatment team yesterday and appeared fairly attentive and relaxed during meeting. MSE: The patient is a well-nourished male looking stated chronological age. Attire is appropriate and dress is casual and is neat. Grooming status is appropriate and neat. Ambulation is independent. Gait is normal and coordinated. Posture is normal and relaxed. Eye contact is appropriate, and adequate. Motor activity is appropriate with purposeful, organized, coordinated movements; with no involuntary movements. Attitude is fairly cooperative. Patient appears distractible and does not relate well to this interviewer. Language production is unspontaneous. Rate is hesitant. Latency of response is prolonged, sad tone, and low volume, and amount is monosyllabic. Articulation is clear. Patient reports mood as okay with incongruent and flat , incongruent affect. Patients thought process is disorganized, non-linear, illogical, with loose associations, thought blocking. Patient does not report suicidal/homicidal thoughts, ideas, or plans. Patient denies auditory, visual hallucinations. Patient denies delusions. Patient does not appear to be attending to internal stimuli. Patients attention and concentration are poor. Patient is oriented to person, place. Patients insight is poor. Patients judgment is poor. No evidence of gross cognitive dysfunction at any point during the interview. No evidence of apparent dysfunction in recent or remote memory. - Time Spent With Patient Time Spent With Patient: 15 minutes, met with patient individually. - Pending Discharge Pending Discharge Within 24 Hours: No Pending Discharge Within 48 Hours: No ICD10 Worksheet Patient Problems: Problems Problem Status Onset Acute psychosis Acute Schizophrenia Acute Unspecified psychosis Acute
[2018-08-25] MEDS: RISPERIDONE 1 MG ODT TAB SL SCH (08:21)
[2018-08-25] MEDS: clonazePAM 0.5 MG TAB PO SCH ×2 (08:21→14:14)
--- NOTE | 2018-08-25 14:13 | ASMTCMCOM ---
CM Note CM Note Notes: The patient reported that he had a supportive visit with his mother today; they discussed discharge and determined that the patient is improving and will likely be ready soon. The patient agreed that he could benefit from remaining in the hospital for the next few days and plans to check in with the provider at the beginning of next week. The patient reported that he is "freaked out" by being here because he is experiencing the onset of symptoms he hadn't experienced prior to hospitalization such as incontinence. The patient was incontinent overnight and continues to be prompted by staff to eliminate quarter after every hour. The patient seems to be improving as evidenced by his clothing; the patient is no longer dressed in a gown only, he is observed wearing pants and shirts. Although, the patient reported he is wearing diapers in addition. Date Signed: 08/25/2018 02:11 PM Electronically Signed By:Vicenta Rees
[2018-08-25] MEDS: clonazePAM 1 MG TAB PO SCH (20:16)
[2018-08-25] MEDS: RISPERIDONE 2 MG ODT TAB SL SCH (20:17)
[2018-08-26] MEDS: clonazePAM 0.5 MG TAB PO SCH ×2 (08:47→15:42)
[2018-08-26] MEDS: RISPERIDONE 1 MG ODT TAB SL SCH (08:47)
[2018-08-26] MEDS ORDERED: hydrOXYzine HCL 25 MG TAB PO PRN (14:50)
[2018-08-26] MEDS ORDERED: LORazepam 0.5 MG TAB PO PRN (14:50)
[2018-08-26] MEDS ORDERED: RISPERIDONE 1 MG ODT TAB SL PRN (14:51)
--- NOTE | 2018-08-26 15:06 | SOAPPROG ---
SOAP Progress Note Assessment/Plan: Assessment: Per Oz Villela's recent note: Assessment: Unspecified psychosis, current acute psychosis. Slight improvement noted, notably sleep and patient is more interactive with staff (see subjective/ objective note). Patient is not safe to discharge at this time as patient continues to exhibit signs of psychosis, and express psychotic symptoms. Patient requires continued inpatient care because of current psychosis, and requires inpatient level of care to stabilize in order to no longer be gravely disabled due to mental illness. Patient could benefit from continued inpatient hospitalization for crisis stabilization, safety, and medication evaluation. Plan: 08/26/18 14:59 1. Patient was sedated and slurring words when MD attempted to rouse him from sleep and speak with him this afternoon. Will change sedating meds and use lower doses of SGA in order to target thought disorder and anxiety with lowest effective dose of meds possible while encouraging use of alternative, non- pharmacologic interventions such as coping skills, group therapy, milieu activities, and positive peer interactions to help manage his mood dysregulation. 2. Decrease Klonopin. Use Ativan 0.5mg Q6H PRN for anxiety. Encourage alternative interventions to help manage anxiety more effectively with lower risk of SE's. 3. Add Hydroxyzine 25mg Q6H PRN for anxiety. 4. Decrease TDD of Risperdal to 2mg QHS. May use Risperdal 0.25mg Q4H PRN for agitation or psychosis. 5. Much of this patient's difficulty with reality testing and thought organization is directly related to cognitive impairment d/t CP, and not a schizophreniform disorder. As such, social and behavioral interventions are likely to be more effective over long-term with lower risks of adverse side effects than use of high doses or combinations of SGA's and benzos. MD strongly encourages family to consider consulting a behavioral health therapist to work with family on implementing these type of interventions at home to minimize the risk of harmful behaviors at home and reduce need for higher levels of care. Subjective: Patient was asleep in bed when MD tried to meet with him. Patient was difficult to rouse and presented sedated, sluggish, slurring his words. MD advised patient he would reduce the benzos and Risperdal he has been receiving since both can cause sedation along with numerous other risks including psychomotor retardation, impaired cognition (which only exacerbates patient's limited intellectual functioning), abnormal involuntary muscle movements, cardiac arrhythmias, dependence, withdrawal, weight gain, dyslipidemia, etc. It seems more worthwhile to help patient learn to use non-pharmacologic tools to cope with anxiety, frustration, and mood dysregulation. Much of the patient's anxiety appears to be caused by his intellectual disability. He has a hard time understanding social cues and processing social/emotional information. Patient responds well to 1:1 direction and guidance from staff. He is currently performing ADL's with limited assistance, including dressing appropriately, brushing teeth, eating meals with peers and attending group therapy. Objective: Vital Signs Temp Pulse Resp BP Pulse Ox 36.5 C 85 14 128/76 H 95 08/25/18 06:00 08/26/18 06:00 08/26/18 06:00 08/26/18 06:00 08/26/18 06:00 MSE: Affect: Labile Mood: "OK" TP: More organized, coherent TC: No SI/HI Insight/Judgment: Impaired - Time Spent With Patient Time Spent With Patient: 15" - Pending Discharge Pending Discharge Within 24 Hours: No Pending Discharge Within 48 Hours: No ICD10 Worksheet Patient Problems: Problems Problem Status Onset Acute psychosis Acute Schizophrenia Acute Unspecified psychosis Acute
[2018-08-26] MEDS: clonazePAM 1 MG TAB PO SCH (19:58)
[2018-08-26] MEDS: RISPERIDONE 2 MG ODT TAB SL SCH (19:59)
--- NOTE | 2018-08-27 09:55 | ASMTBHDC ---
Notes Note: Notes: The patient is prepared to discharge on Tuesday, August 28, pending further assessment from his provider. The patient reported having had a successful visit with his father on the unit yesterday, Tuesday, August 26. He planned to invite both of his parents to return for a visit this afternoon. The patient reported no issues with incontinence overnight. He expressed interest in beginning outpatient group therapy because he has found the inpatient groups to be very supportive to his treatment including that they have helped him to feel more comfortable expressing himself. The patient requested to call him therapist, Vidal Gilliland. Date Signed: 08/27/2018 09:54 AM Electronically Signed By:Vicenta Rees
[2018-08-27] MEDS: ACETAMINOPHEN 325 MG TAB PO PRN ×2 (11:14→18:58)
--- NOTE | 2018-08-27 13:44 | ASMTBHFAM ---
Notes Note: Notes: This keno writer / runner met with the parents of this patient and discussed community resources for out patient group therapy, as well as, the discharge plan. This keno writer / runner explained that discharge pends on further evaluation from the provider, otherwise his appointment for individual therapy has been rescheduled for late afternoon. The patient's earliest appointment on August 28 is 13:00 for DBT skills with [facility]. Date Signed: 08/27/2018 01:44 PM Electronically Signed By:Vicenta Rees
--- NOTE | 2018-08-27 13:49 | SOAPPROG ---
SOAP Progress Note Assessment/Plan: Assessment: Per Oz Villela's recent note: Assessment: Unspecified psychosis, current acute psychosis. Slight improvement noted, notably sleep and patient is more interactive with staff (see subjective/ objective note). Patient is not safe to discharge at this time as patient continues to exhibit signs of psychosis, and express psychotic symptoms. Patient requires continued inpatient care because of current psychosis, and requires inpatient level of care to stabilize in order to no longer be gravely disabled due to mental illness. Patient could benefit from continued inpatient hospitalization for crisis stabilization, safety, and medication evaluation. Plan: 08/26/18 14:59 1. Patient was sedated and slurring words when MD attempted to rouse him from sleep and speak with him this afternoon. Will change sedating meds and use lower doses of SGA in order to target thought disorder and anxiety with lowest effective dose of meds possible while encouraging use of alternative, non- pharmacologic interventions such as coping skills, group therapy, milieu activities, and positive peer interactions to help manage his mood dysregulation. 2. Decrease Klonopin. Use Ativan 0.5mg Q6H PRN for anxiety. Encourage alternative interventions to help manage anxiety more effectively with lower risk of SE's. 3. Add Hydroxyzine 25mg Q6H PRN for anxiety. 4. Decrease TDD of Risperdal to 2mg QHS. May use Risperdal 0.25mg Q4H PRN for agitation or psychosis. 5. Much of this patient's difficulty with reality testing and thought organization is directly related to cognitive impairment d/t CP, and not a schizophreniform disorder. As such, social and behavioral interventions are likely to be more effective over long-term with lower risks of adverse side effects than use of high doses or combinations of SGA's and benzos. MD strongly encourages family to consider consulting a business control specialist to work with family on implementing these type of interventions at home to minimize the risk of harmful behaviors at home and reduce need for higher levels of care. PLAN: 08/27/18 13:21 1. Patient more alert, oriented and able to engage in conversation. He complete safety plan and identified some coping strategies he can use to help manage his anxiety and stress more effectively. 2. Patient reported less anxiety today. Was able to attend groups and participate appropriately. 3. MD encouraged POC to consider day tx programs that would provide patient with social activities and therapeutic support. Parents said they were looking into some groups b/c patient "seemed to enjoy groups" so much on unit. They plan to talk to patient's OP therapist about groups and look into day tx program or PHP at [facility]. 4. POC stated has f/u appts with psych MD and therapist on Tuesday afternoon. They would like patient to d/c on Tuesday AM. Subjective: Patient sitting in his room at desk eating salad his parents brought him. MD spoke with POC and patient at length about his safety plan, his aftercare treatment, his OP providers, community resources for social support and day tx programs. MD also discussed patient's medications. POC said patient looks the "best" they've seen him. He is calm, pleasant, cooperative, alert, oriented, interacting appropriately. He is not sedated or sluggish, more energetic today. He has attended all groups on unit today and wants to do a day tx program as outpatient. POC are looking into several options. MD advised about r/b/se's of benzos and antipsychotic meds. MD advised against using benzos PRN throughout day every time patient has an anxiety episode d/t concerns about tolerance, dependence and rebound anxiety. POC said they try to use klonopin at home sparingly. Patient agreed he would prefer to use his coping skills when anxious , such as riding his bike, taking a walk, going to the park, reading a book, listening to music and hanging out with friends. POC agreed with this plan. Objective: Vital Signs Temp Pulse Resp BP Pulse Ox 36.8 C 83 14 141/62 H 96 08/27/18 06:00 08/27/18 06:00 08/27/18 06:00 08/27/18 06:00 08/27/18 06:00 MSE: Affect: Euthymic Mood: "Good" TP: Linear, goal-directed TC: Denies any SI/HI, no paranoia Perception: No AH/VH Insight/Judgment: Improved - Time Spent With Patient Time Spent With Patient: 25" - Pending Discharge Pending Discharge Within 24 Hours: Yes Pending Discharge Date: 08/28/18 (Possible d/c on Tuesday once f/u appts confirmed) Pending Discharge Time: 11:00 ICD10 Worksheet Patient Problems: Problems Problem Status Onset Acute psychosis Acute Schizophrenia Acute Unspecified psychosis Acute
[2018-08-27] MEDS: RISPERIDONE 2 MG ODT TAB SL SCH (19:01)
[2018-08-27] MEDS: clonazePAM 1 MG TAB PO SCH (19:01)
[2018-08-28 06:43] VITALS: BP 133/72
--- NOTE | 2018-08-28 08:49 | BDS ---
REASON FOR ADMISSION: From the ED note dated 08/22/2018, patient presented with complaints of irrational thoughts. The patient denied suicidal ideation. Patient reported feeling homicidal toward the interviewer. Patient reported his irrational thoughts were also delusional thoughts. The patient was admitted involuntarily on an M1 hold due to being a danger to others as evidenced by having homicidal thoughts to the interviewer and also for grave disability due to an underlying mental illness. The patient was admitted for safety crisis stabilization and medication evaluation. ADMITTING DIAGNOSES: Acute psychosis, cerebral palsy with cognitive impairment , generalized anxiety disorder, unspecified psychosis. ADMISSION PHYSICAL EXAM: The patient was seen for an Internal Medicine consultation on 08/22/2018, for medical clearance for inpatient psychiatric hospitalization and treatment. The patient was medically cleared for inpatient psychiatric hospitalization and treatment. For further details, please refer to consultation note dated 08/22/2018. ADMISSION LABS: CBC from 08/22/2018, within normal limits except white blood cells were elevated at 10.13, hemoglobin was elevated at 18.1, hematocrit was elevated at 52.6, absolute neutrophils were elevated at 7.13. BMP from 2017 was within normal limits except glucose was elevated at 101. Hemoglobin A1c from 08/22/2018, was 5.5, within normal limits. Liver function tests from 08/22/2018, within normal limits except total protein was elevated at 8.6, albumin was elevated at 5.1. Lipid panel from 08/22/2018, within normal limits except LDL cholesterol calculated was elevated at 106. Toxicology screen from 08/22/2018, was negative for substances screen tested and was negative for ethyl alcohol. MAJOR PROCEDURES OR TESTS: None. HOSPITAL COURSE: The most prominent symptoms and behaviors while the patient was here were severe anxiety, disorganized behavior and thought process. Target symptoms were severe anxiety and psychosis. Treatment modalities utilized were milieu and group therapy. Risperidone 2 mg p.o. at bedtime was started to target psychosis symptoms, was tolerated with no report of side effects and with good response. Ativan 1 mg p.o. at bedtime was started to target severe anxiety symptoms, was tolerated with no report of side effects and with fair response. Ativan was discontinued and Klonopin 1 mg p.o. at bedtime was started to target severe anxiety symptoms, was tolerated with no report of side effects and with good response. Risperdal 1 mg p.o. daily was started to target psychosis and severe agitation. This medication was discontinued by the attending psychiatrist over the weekend due to concern of over-sedation. Klonopin 0.5 mg 0900 and 0.5 mg, 1400 was started to target severe agitation. This medication was discontinued by the attending psychiatrist over the weekend due to concern of over-sedation. The patient has improved considerably with no signs of psychiatric symptoms and no psychiatric symptoms expressed at time of discharge. The patient reports he has improved since admission. States to be in stable condition. Feels safe to discharge and he contracts for safety. Patient's response to treatment was good. The patient's parents report that the patient is at baseline and has improved since his admission. There were no adverse or unexpected results of treatment. The patient was safe throughout his stay, active in treatment, engaged in groups, and was appropriate with staff and other patients. The patient met with the treatment team prior to discharge to assess readiness to discharge and reviewed discharge plan. The treatment team consensus is the patient is in stable condition, has a safe discharge plan and is ready to discharge today. CONDITION AT DISCHARGE: Patient is in stable condition and is no longer a danger to self or others, and is not gravely disabled due to mental illness. Patient is no longer in need of inpatient level of care, and can be safely and effectively treated within the community. The patients level of risk at time of discharge is low. MSE: The patient is casually dressed and with good hygiene , and looks stated age. Patient is sitting, posture is upright, and position is relaxed. Patient appears awake, alert, and responds appropriately and reasonably during interview. Patient is engaged, relates well to interviewer, and emotional facial expression is appropriate to situation and changes appropriately with topic. Patient is cooperative, makes comfortable eye contact , and movements are voluntary, deliberate, coordinated, and smooth and even with no inappropriate movements. Patient makes laryngeal sounds effortlessly and shares conversation appropriately; pace of conversation is appropriate, and stream of talking is fluent; articulation is clear and understandable; word choice is effortless and appropriate for education level; completes sentences, occasionally pausing to think; rate and volume are appropriate for interview and setting. Patient reports mood as euthymic. Patients affect is stable with full variable range, congruent with mood, and appropriate to speech and circumstances. Patient has linear and logical thinking, with no loose associations, tangential thought, thought blocking, concrete thinking, or any other signs of formal thought disorder. Patient denies suicidal and homicidal ideation, and denies hallucinations and delusions. Patient appears to be a reliable historian with sound judgement and good insight into current condition. Patient has no apparent dysfunction in recent or remote memory noted , and no evidence of gross cognitive dysfunction noted at any point during the interview. DISCHARGE DIAGNOSES: Cerebral palsy with cognitive impairment, generalized anxiety disorder, unspecified psychosis. CURRENT MEDICATIONS: After reviewing options, risks, and benefits with the patient and the patient's parents, the patient agrees to continue Risperdal 2 mg p.o. at bedtime. and Klonopin 1 mg p.o. at bedtime. The patient request prescriptions for these medications at time of discharge and prescriptions for 30 days are provided. The prescriptions are reviewed with the patient at time of discharge to ensure accuracy and patient understanding. These prescriptions are also reviewed with the patient's mother and father at time of discharge. DISPOSITION: The patient left hospital independently and voluntarily with his mother and father after the family meeting with this IT QUALITY ASSURANCE ANALYST and plans to return home with his mother and father. FOLLOWUP: student services coordinator reports the appropriate outpatient follow-up services have been established and outpatient appointments have been scheduled. The patient received written instructions with times and dates of outpatient follow-up appointments. The following follow-up recommendations were provided to the patient at discharge: Continue psychotropic medications as prescribed and attend appointments as scheduled. Report any side effects to a psychiatric outpatient provider, a primary care provider, or other health animal care worker. Address any questions or problems concerning the psychotropic medications with a psychiatric outpatient provider, a primary care provider, or other health animal care worker. Contact [facility] or [facility], or go to the nearest emergency room, if you are ever a danger to yourself/others, or unable to care for yourself. As soon as possible, establish a routine medication management treatment with a psychiatric provider, establish routine therapy appointments, and follow-up with a primary care provider. LEGAL COURSE: The patient was admitted on an M1 hold for involuntary inpatient psychiatric hospitalization. The patient discharged today independently and voluntarily. The patient did become voluntary during his stay. ATTITUDE AT TIME OF DISCHARGE: The patients attitude was positive at time of discharge, and patient reports looking forward to discharging today. The patient reports he feels safe to discharge, is no longer a danger to himself or others, is in stable condition, and contracts for safety. Patient states he will continue medications as prescribed, and establish medication management treatment with an outpatient provider after discharge. Patient reports he understands the information that has been provided to him, and he understands, accepts, and agrees to psychotropic medications. Patient describes internal protective factors as the coping skills he has learned while hospitalized here, and he plans to continue to practice these coping skills after discharge. FAMILY MEETING: This IT QUALITY ASSURANCE ANALYST met with patient and patient's parents at time of discharge at patient's request to review discharge plan and assess readiness to discharge. Patient's parents report patient is safe to discharge and has a safe discharge plan. LABS AND RADIOLOGY STUDIES: There were no pending labs or studies at time of discharge. ADVANCE DIRECTIVES: There were no advance directives on file, and the patient was full code during this hospitalization. The following psychotropic medication treatment informed consent and recommendations were provided to the patient at time of discharge. Patient reports he understands, accepts, and agrees to the information that has been provided. PSYCHOTROPIC MEDICATION TREATMENT INFORMED CONSENT and RECOMMENDATIONS: Review nature of condition, diagnosis, and prognosis. Review nature and purpose of psychotropic medication treatment. Review type of psychotropic medications being prescribed. Review risk and benefits of psychotropic medication treatment. Review probable length of time will need to take medications. Review risk and benefits of not undergoing psychotropic medication treatment. Review alternative treatments to psychotropic medications. Review psychotropic medications contraindications, side effects, and importance of reporting any side effects to a psychiatric provider, primary care provider, or other health animal care worker. Review importance of her asking a psychiatric provider or primary care provider any questions or problems concerning the psychotropic medications. Review safety plan and the importance to contact [facility] or [facility] , or go to the nearest emergency room, if ever a danger to yourself/others, or unable to care for yourself. Recommend upon discharge to establish routine medication management treatment with a psychiatric provider, establish routine therapy appointments, and follow-up with a primary care provider. Verify patient understands, accepts, and agrees to the information that has been provided. /[id number]
== END 2018-08-28 11:35 | disposition home or self-care (01) | DRG 885 ==
LOC: BBEH 16:10
PROVIDERS: ADMIT Psychiatry & Neurology Psychiatry; ATTEND Psychiatry & Neurology Psychiatry
DX: F23 Brief psychotic disorder (principal); F41.1 Generalized anxiety disorder; G80.2 Spastic hemiplegic cerebral palsy
CPT/HCPCS: 80305; G0480